=== PATIENT | female | born 1985 | race Caucasian/White ===

== ENCOUNTER 2019-05-26 20:13 | Observation (INO) ==
[2019-05-26] MEDS ORDERED: 0.9 % Sodium Chloride 1,000 ML IVC ONE ×2 (20:42→23:44)
[2019-05-26] MEDS ORDERED: Ondansetron 4 MG/2 ML VIAL IVP ONE (20:43)
[2019-05-26] MEDS ORDERED: Ketorolac 30 MG/ML VIAL IVP ONE (20:53)
[2019-05-26 21:38] LABS: VBG HCO3 26 mEq/L (21-27); VBG PCO2 43 mmHg (41-51); VBG PH 7.39 pH Units (7.32-7.42); VBG PO2 59 mmHg (25-50)
[2019-05-26 21:48] LABS: Albumin 4.3 g/dL (3.5-5.7); Albumin/Globulin Ratio 1.3 (1.1-2.2); Bilirubin,Total 0.4 mg/dL (0.3-1.0); Calcium 9.7 mg/dL (8.6-10.3); Globulin 3.3 g/dL (2.4-3.5); Total Protein 7.6 g/dL (6.4-8.9); Troponin I 0.07 ng/mL (< 0.04)
[2019-05-26] MEDS ORDERED: Aspirin 81 MG TAB.CHEW PO ONE (21:55)
[2019-05-26 21:56] LABS: Bilirubin,Urine Negative (Negative); Blood,Urine Negative (Negative); Clarity,Urine Cloudy (Clear); Color,Urine Yellow (Yellow); Glucose,Urine (UA) Normal (Normal); Ketones,Urine Negative (Negative); Leukocyte Esterase,Urine Small (Negative); Nitrite,Urine Negative (Negative); PH,Urine 5.5 pH Units (5.0-8.0); Protein,Urine Trace mg/dL (Neg-Trace); Specific Gravity,Urine 1.019 (1.010-1.025); Urobilinogen,Urine Normal (Normal)
[2019-05-26] MEDS ORDERED: Potassium Chloride Elixir 20 MEQ/15 ML UDC PO ONE (21:56)
[2019-05-26 22:00] LABS: Bacteria,Urine Many per hpf (None-Few); Hyaline Casts,Urine None Seen per lpf (None-Few); RBC,Urine 0-3 per hpf (0-3); Squamous Epithelial Cell,Urine Many per lpf (None-Few)
[2019-05-26] MEDS ORDERED: *HR* Enoxaparin 120 MG/0.8 ML SYRINGE SQ STA (22:20)
[2019-05-27] MEDS ORDERED: *HR* Enoxaparin 120 MG/0.8 ML SYRINGE SQ STA (00:57)
[2019-05-27 01:05] LABS: Hematocrit 36.3 % (35.3-44.9); Mean Corpuscular HGB Conc 33.1 g/dL (31.6-35.5); Mean Corpuscular Hemoglobin 26.6 pg (28.0-33.3); Mean Corpuscular Volume 80.5 fL (83.0-100.0); Mean Platelet Volume 11.1 fL (9.4-12.4); Platelet Count 364 K/mcL (140-400); Red Blood Count 4.51 M/mcL (3.82-4.97); Red Cell Distribution Width 14.3 % (11.5-14.5); White Blood Count 12.2 K/mcL (4.3-11.1)
[2019-05-27] MEDS ORDERED: Ondansetron 4 MG/2 ML VIAL IVP PRN (01:47)
[2019-05-27] MEDS ORDERED: Naloxone 0.4 MG/ML INJ IVP PRN (01:47)
[2019-05-27] MEDS ORDERED: Ringers Solution, Lactated 1,000 ML IVC ONE (03:35)
[2019-05-27] MEDS ORDERED: D5% in Water 1,000 ML IVC PRN (04:50)
[2019-05-27] MEDS ORDERED: Dextrose Gel 15 GM/37.5 ML TUBE PO PRN ×2 (04:50)
[2019-05-27] MEDS ORDERED: *HR* Dextrose 50 % in Water (Syg) 50 ML SYRINGE IVP PRN (04:50)
[2019-05-27 05:28] LABS: Basophils % 0.3 %; Eosinophils # 0.1 K/mcL (0.0-0.6); Eosinophils % 0.6 %; Hematocrit 31.9 % (35.3-44.9); Hemoglobin 10.6 g/dL (11.5-15.4); Immature Granulocytes % 0.3 % (0-4); Lymphocytes # 4.5 K/mcL (0.6-4.6); Lymphocytes % 35.8 %; Mean Corpuscular HGB Conc 33.2 g/dL (31.6-35.5); Mean Corpuscular Hemoglobin 26.6 pg (28.0-33.3); Mean Corpuscular Volume 80.2 fL (83.0-100.0); Mean Platelet Volume 11.1 fL (9.4-12.4); Monocytes # 0.5 K/mcL (0.0-1.3); Monocytes % 3.9 %; Neutrophils # 7.3 K/mcL (1.6-8.9); Platelet Count 320 K/mcL (140-400); Red Blood Count 3.98 M/mcL (3.82-4.97); Red Cell Distribution Width 14.3 % (11.5-14.5); Segmented Neutrophils % 59.1 %; White Blood Count 12.4 K/mcL (4.3-11.1)
[2019-05-27 05:42] LABS: Albumin 3.6 g/dL (3.5-5.7); Albumin/Globulin Ratio 1.2 (1.1-2.2); Bilirubin,Total 0.3 mg/dL (0.3-1.0); Calcium 8.6 mg/dL (8.6-10.3); Globulin 2.9 g/dL (2.4-3.5); Magnesium 1.1 mg/dL (1.6-2.6); Potassium 3.5 mEq/L (3.5-5.1); Total Protein 6.5 g/dL (6.4-8.9)
[2019-05-27] MEDS: Insulin DETEMIR 100 UNIT/ML X5UNITS SQ SCH (08:26)
[2019-05-27] MEDS: Insulin LISPRO 300 UNITS/3 ML VIAL SQ SCH ×3 (08:29→17:27)
[2019-05-27 10:42] LABS: Estimated Average Glucose 249 mg/dl
[2019-05-27] MEDS: Prenatal Vit/FA 1 EACH TABLET PO SCH (14:43)
[2019-05-27] MEDS ORDERED: Perflutren Lipid Microsphere 1.3 ML in 0.9 % Sodium Chloride 8.7 ML IVP ONE (16:03)
[2019-05-27] MEDS: *HR* Enoxaparin 120 MG/0.8 ML SYRINGE SQ SCH (17:27)
[2019-05-28] MEDS: *HR* Enoxaparin 120 MG/0.8 ML SYRINGE SQ SCH (05:21)
[2019-05-28 06:41] LABS: Hematocrit 31.3 % (35.3-44.9); Hemoglobin 10.2 g/dL (11.5-15.4); Mean Corpuscular HGB Conc 32.6 g/dL (31.6-35.5); Mean Corpuscular Hemoglobin 27.1 pg (28.0-33.3); Mean Platelet Volume 11.1 fL (9.4-12.4); Platelet Count 257 K/mcL (140-400); Red Blood Count 3.77 M/mcL (3.82-4.97); Red Cell Distribution Width 14.4 % (11.5-14.5)
[2019-05-28 06:52] LABS: BUN/Creatinine Ratio 23 (6-26); Blood Urea Nitrogen 16 mg/dL (6-20); Calcium 8.6 mg/dL (8.6-10.3); Carbon Dioxide 23 mEq/L (23-29); Chloride 104 mEq/L (98-107); Glucose 149 mg/dL (70-105); Osmolality,Calculated 296 (280-300); Potassium 3.9 mEq/L (3.5-5.1); Sodium 141 mEq/L (136-145); eGFR For African Americans > 60 (> 60); eGFR For Non-African Americans > 60 (> 60)
[2019-05-28] MEDS: Insulin LISPRO 300 UNITS/3 ML VIAL SQ SCH ×2 (08:20→11:53)
[2019-05-28] MEDS: Prenatal Vit/FA 1 EACH TABLET PO SCH (08:20)
[2019-05-28] MEDS: Insulin DETEMIR 100 UNIT/ML X5UNITS SQ SCH (08:20)
[2019-05-28 11:34] VITALS: BP 117/83
[2019-05-28] MEDS ORDERED: Isovue-370 500 ML BOTTLE IVP ONE (12:18)
== END 2019-05-28 17:03 | disposition home or self-care (01) ==
LOC: EMEROOARM 20:13 → 2ANU 20:13 → SUATTDRO 05-27 01:21 → 2ANU 05-27 01:38
PROVIDERS: ADMIT Pharmacist; ATTEND Family Medicine

== ENCOUNTER → 2019-11-27 18:20 | Observation (INO) ==
[2019-11-27 17:02] LABS: Protein/Creatinine Ratio,Urine 0.25 mg/mg (0.00-0.20)
[2019-11-27 17:06] LABS: Basophils % 0.2 %; Eosinophils # 0.1 K/mcL (0.0-0.6); Eosinophils % 0.8 %; Hematocrit 30.9 % (35.3-44.9); Hemoglobin 9.5 g/dL (11.5-15.4); Immature Granulocytes % 0.4 % (0-4); Lymphocytes # 2.2 K/mcL (0.6-4.6); Lymphocytes % 19.8 %; Mean Corpuscular HGB Conc 30.7 g/dL (31.6-35.5); Mean Corpuscular Hemoglobin 24.1 pg (28.0-33.3); Mean Corpuscular Volume 78.4 fL (83.0-100.0); Mean Platelet Volume 10.1 fL (9.4-12.4); Monocytes # 0.6 K/mcL (0.0-1.3); Monocytes % 5.4 %; Neutrophils # 8.2 K/mcL (1.6-8.9); Platelet Count 449 K/mcL (140-400); Red Blood Count 3.94 M/mcL (3.82-4.97); Red Cell Distribution Width 15.2 % (11.5-14.5); Segmented Neutrophils % 73.4 %; White Blood Count 11.2 K/mcL (4.3-11.1)
[2019-11-27 17:26] LABS: Alanine Aminotransferase 7 Units/L (7-52); Aspartate Amino Transferase 9 Units/L (13-39); BUN/Creatinine Ratio 15 (6-26); Blood Urea Nitrogen 8 mg/dL (6-20); Lactate Dehydrogenase 102 Units/L (140-271); Uric Acid 4.1 mg/dL (2.3-7.6); eGFR For African Americans > 60 (> 60); eGFR For Non-African Americans > 60 (> 60)
== END | disposition home or self-care (01) ==
LOC: 1NENULAB
PROVIDERS: ADMIT Obstetrics & Gynecology; ATTEND Obstetrics & Gynecology

== ENCOUNTER → 2019-12-19 16:50 | Observation (INO) ==
[2019-12-19 15:48] LABS: Basophils % 0.2 %; Eosinophils # 0.1 K/mcL (0.0-0.6); Eosinophils % 0.4 %; Hematocrit 33.8 % (35.3-44.9); Hemoglobin 10.5 g/dL (11.5-15.4); Immature Granulocytes % 0.3 % (0-4); Lymphocytes # 2.2 K/mcL (0.6-4.6); Lymphocytes % 17.9 %; Mean Corpuscular HGB Conc 31.1 g/dL (31.6-35.5); Mean Corpuscular Hemoglobin 24.4 pg (28.0-33.3); Mean Corpuscular Volume 78.4 fL (83.0-100.0); Mean Platelet Volume 9.7 fL (9.4-12.4); Monocytes # 0.5 K/mcL (0.0-1.3); Monocytes % 4.1 %; Neutrophils # 9.4 K/mcL (1.6-8.9); Platelet Count 436 K/mcL (140-400); Red Blood Count 4.31 M/mcL (3.82-4.97); Red Cell Distribution Width 17.6 % (11.5-14.5); Segmented Neutrophils % 77.1 %; White Blood Count 12.2 K/mcL (4.3-11.1)
[2019-12-19 15:53] LABS: Bacteria,Urine Few per hpf (None-Few); Bilirubin,Urine Negative (Negative); Blood,Urine Negative (Negative); Clarity,Urine Turbid (Clear); Color,Urine Yellow (Yellow); Glucose,Urine (UA) Normal (Normal); Ketones,Urine 40 mg/dL (Negative); Leukocyte Esterase,Urine Trace (Negative); Mucus,Urine Few per lpf (None-Few); Nitrite,Urine Negative (Negative); Protein,Urine 30 mg/dL (Neg-Trace); Specific Gravity,Urine 1.027 (1.010-1.025); Squamous Epithelial Cell,Urine Moderate per hpf (None-Few); Urobilinogen,Urine Normal (Normal)
[2019-12-19 15:57] LABS: Protein/Creatinine Ratio,Urine 0.23 mg/mg (0.00-0.20)
[2019-12-19 16:06] LABS: Alanine Aminotransferase 6 Units/L (7-52); Aspartate Amino Transferase 8 Units/L (13-39); BUN/Creatinine Ratio 16 (6-26); Blood Urea Nitrogen 8 mg/dL (6-20); Glucose 141 mg/dL (70-105); Lactate Dehydrogenase 88 Units/L (140-271); Uric Acid 4.3 mg/dL (2.3-7.6); eGFR For African Americans > 60 (> 60); eGFR For Non-African Americans > 60 (> 60)
== END | disposition home or self-care (01) ==
LOC: 1NENULAB
PROVIDERS: ADMIT Obstetrics & Gynecology; ATTEND Obstetrics & Gynecology

== ENCOUNTER 2020-01-09 05:30 | Inpatient (IN) ==
[2020-01-09] MEDS ORDERED: Famotidine 20 MG/2 ML VIAL IVP PRN (06:17)
[2020-01-09] MEDS ORDERED: Metoclopramide 10 MG/2 ML VIAL IVP PRN ×2 (06:17→11:52)
[2020-01-09] MEDS ORDERED: Naloxone 0.4 MG/ML INJ IVP PRN (06:17)
[2020-01-09] MEDS ORDERED: Azithromycin 500 MG in 0.9 % Sodium Chloride 250 ML IVPB ONE (06:17)
[2020-01-09] MEDS ORDERED: FLU Vac QV 20-21 (6Month+)/PF 0.5 ML SYRINGE IM ONE (06:17)
[2020-01-09] MEDS ORDERED: Ringers Solution, Lactated 1,000 ML IVC SCH (06:30)
[2020-01-09] MEDS ORDERED: CeFAZolin Syr 3,000MG/30 ML 3,000 MG/30 ML SYRINGE IVPB ONE (06:34)
[2020-01-09] MEDS ORDERED: *HR* Labetalol 20 MG/4 ML SYRINGE IVP PRN (06:35)
[2020-01-09] MEDS ORDERED: *HR* Promethazine 25 MG/ML VIAL IVP PRN (06:35)
[2020-01-09] MEDS ORDERED: *HR* HYDROmorphone PF 0.5 MG/0.5 ML SYRINGE IVP PRN (06:35)
[2020-01-09 06:36] LABS: Amphetamine Screen,Urine Negative ng/mL (Cutoff=1000); Barbiturate Screen,Urine Negative ng/mL (Cutoff=200)
[2020-01-09 06:37] LABS: Benzodiazepines Screen,Urine Negative ng/mL (Cutoff=300); Cannabinoid Screen,Urine Negative ng/mL (Cutoff = 50); Cocaine Screen,Urine Negative ng/mL (Cutoff= 300); Opiate Screen,Urine Negative ng/mL (Cutoff=300); Phencyclidine Screen,Urine Negative ng/mL (Cutoff=25)
[2020-01-09 06:41] LABS: Basophils % 0.3 %; Eosinophils # 0.1 K/mcL (0.0-0.6); Eosinophils % 0.7 %; Hemoglobin 10.7 g/dL (11.5-15.4); Immature Granulocytes % 0.5 % (0-4); Lymphocytes # 2.6 K/mcL (0.6-4.6); Lymphocytes % 24.5 %; Mean Corpuscular HGB Conc 30.6 g/dL (31.6-35.5); Mean Corpuscular Volume 78.7 fL (83.0-100.0); Mean Platelet Volume 10.4 fL (9.4-12.4); Monocytes # 0.5 K/mcL (0.0-1.3); Monocytes % 4.6 %; Neutrophils # 7.4 K/mcL (1.6-8.9); Platelet Count 391 K/mcL (140-400); Red Blood Count 4.45 M/mcL (3.82-4.97); Red Cell Distribution Width 18.3 % (11.5-14.5); Segmented Neutrophils % 69.4 %; White Blood Count 10.6 K/mcL (4.3-11.1)
[2020-01-09] MEDS ORDERED: Ringers Solution, Lactated 1,000 ML ONE ×2 (06:49→08:02)
[2020-01-09] MEDS ORDERED: Oxytocin 20 units/ LR 1000 mL 20 UNIT/1,000 ML BAG IVC ONE (07:19)
[2020-01-09] MEDS ORDERED: *HR* Morphine Sulfate/PF 10 MG/10 ML AMPUL ONE (07:23)
[2020-01-09] MEDS ORDERED: *HR* Phenylephrine 10 MG/ML VIAL ONE (07:23)
[2020-01-09] MEDS ORDERED: *HR* FentaNYL (PF) 100 MCG/2 ML VIAL ONE (07:23)
[2020-01-09] MEDS ORDERED: Ondansetron 4 MG/2 ML VIAL ONE (07:23)
[2020-01-09] MEDS ORDERED: EPHEDrine 50 MG/ML VIAL ONE (07:23)
[2020-01-09] MEDS ORDERED: Acetaminophen IV 1,000 MG/100 ML INFUS..BTL ONE (07:24)
[2020-01-09] MEDS ORDERED: Simethicone 80 MG TAB.CHEW PO PRN (11:52)
[2020-01-09] MEDS ORDERED: Sennosides 8.6 MG TABLET PO PRN (11:52)
[2020-01-09] MEDS ORDERED: Rho Immune Globulin 1,500 UNIT SYRINGE IM ONE (11:52)
[2020-01-09] MEDS ORDERED: Oxytocin 20 units/ LR 1000 mL 20 UNIT/1,000 ML BAG IVC SCH (11:52)
[2020-01-09] MEDS ORDERED: *HR* Dextrose 50 % in Water (Vial) 50 ML VIAL IVP PRN (11:52)
[2020-01-09] MEDS ORDERED: D5% in Water 1,000 ML IVC PRN (11:52)
[2020-01-09] MEDS ORDERED: Ondansetron 4 MG/2 ML VIAL IVP PRN (11:52)
[2020-01-09] MEDS ORDERED: Dextrose Gel 15 GM/37.5 ML TUBE PO PRN ×2 (11:52)
[2020-01-09] MEDS ORDERED: Insulin LISPRO 300 UNITS/3 ML VIAL SQ SCH (12:00)
[2020-01-09] MEDS: Ibuprofen 600 MG TABLET PO SCH ×2 (12:54→18:06)
[2020-01-09] MEDS: metroNIDAZOLE 500 MG TABLET PO SCH ×2 (14:42→20:13)
[2020-01-09] MEDS: cephALEXin 500 MG CAPSULE PO SCH ×2 (14:43→20:13)
[2020-01-09] MEDS: Insulin LISPRO 300 UNITS/3 ML VIAL SQ SCH ×2 (16:36→20:55)
[2020-01-10 03:24] LABS: Basophils # 0.1 K/mcL (0.0-0.2); Basophils % 0.6 %; Eosinophils # 0.2 K/mcL (0.0-0.6); Eosinophils % 1.5 %; Hematocrit 32.7 % (35.3-44.9); Hemoglobin 10.1 g/dL (11.5-15.4); Immature Granulocytes % 0.3 % (0-4); Lymphocytes # 2.4 K/mcL (0.6-4.6); Lymphocytes % 24.7 %; Mean Corpuscular HGB Conc 30.9 g/dL (31.6-35.5); Mean Corpuscular Hemoglobin 24.6 pg (28.0-33.3); Mean Corpuscular Volume 79.8 fL (83.0-100.0); Mean Platelet Volume 10.5 fL (9.4-12.4); Monocytes # 0.6 K/mcL (0.0-1.3); Monocytes % 5.8 %; Neutrophils # 6.5 K/mcL (1.6-8.9); Platelet Count 357 K/mcL (140-400); Red Cell Distribution Width 18.1 % (11.5-14.5); Segmented Neutrophils % 67.1 %; White Blood Count 9.7 K/mcL (4.3-11.1)
[2020-01-10] MEDS: Ibuprofen 600 MG TABLET PO SCH ×4 (04:41→21:55)
[2020-01-10] MEDS: cephALEXin 500 MG CAPSULE PO SCH ×3 (08:47→20:54)
[2020-01-10] MEDS: Acetaminophen 325 MG TABLET PO PRN ×2 (08:47→20:54)
[2020-01-10] MEDS: Prenatal Vit/FA 1 EACH TABLET PO SCH (08:47)
[2020-01-10] MEDS: metroNIDAZOLE 500 MG TABLET PO SCH ×3 (08:47→20:54)
[2020-01-10] MEDS ORDERED: Prenatal Vit/FA 1 EACH TABLET PO SCH (09:00)
[2020-01-10] MEDS: Insulin LISPRO 300 UNITS/3 ML VIAL SQ SCH ×4 (09:01→21:47)
[2020-01-10] MEDS: *HR* OxyCODONE/APAP 5/325 TABLET PO PRN (20:54)
[2020-01-11] MEDS: *HR* OxyCODONE/APAP 5/325 TABLET PO PRN ×2 (01:15→07:41)
[2020-01-11] MEDS: Ibuprofen 600 MG TABLET PO SCH (04:17)
[2020-01-11] MEDS: cephALEXin 500 MG CAPSULE PO SCH (07:40)
[2020-01-11] MEDS: metroNIDAZOLE 500 MG TABLET PO SCH (07:40)
[2020-01-11] MEDS: Prenatal Vit/FA 1 EACH TABLET PO SCH (07:40)
[2020-01-11 07:53] VITALS: BP 110/71
[2020-01-11] MEDS ORDERED: FLU Vac QV 20-21 (6Month+)/PF 0.5 ML SYRINGE IM ONE (11:13)
[2020-01-11] MEDS: Insulin LISPRO 300 UNITS/3 ML VIAL SQ SCH ×2 (12:44→12:54)
== END 2020-01-11 13:16 | disposition home or self-care (01) | DRG 540 ==
LOC: 1NENULAB 05:30 → 1NENUOBS 11:24
PROVIDERS: ADMIT Obstetrics & Gynecology; ATTEND Obstetrics & Gynecology